=== PATIENT | female | born 1995 | race Caucasian/White ===

== ENCOUNTER 2017-03-27 02:44 | Emergency (ER) | payer OTHER ==
[~2017-03-27] VITALS: Ht 154.9 cm; Wt 59.0 kg
--- NOTE | ~2017-03-27 | EKG ---
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
[2017-03-27 03:19] LABS: ABSOLUTE NEUTROPHILS 4.2 thou/uL (1.4-8.2); BASOPHILS 0.6 % (0.0-2.0); EOSINOPHILS 1.3 % (0.0-3.0); HEMATOCRIT 32.7 % (37.0-47.0); HEMOGLOBIN 10.7 gm/dL (12.0-15.0); LYMPHOCYTES 35.9 % (24.0-44.0); MCH 25.6 pg (26.0-34.0); MCHC 32.6 g/dL (28.0-37.0); MCV 78.6 fL (80.0-100.0); MONOCYTES 9.5 % (1.0-8.0); PLATELET COUNT 298 thou/uL (150-400); POLYS 52.7 % (36.0-66.0); RBC 4.16 mil/uL (4.20-5.00); RDW 15.4 % (10.5-14.5)
[2017-03-27 03:35] LABS: APTT 29.4 Seconds (24.5-32.8); PROTIME 10.7 Seconds (9.3-11.4)
[2017-03-27 03:39] LABS: ANION GAP 11 mmol/L (7-16); BUN 12 mg/dL (7-18); CALCIUM 8.8 mg/dL (8.5-10.1); CHLORIDE 104 mmol/L (98-107); CO2 27 mmol/L (21-32); CREATININE 0.8 mg/dL (0.6-1.0); GLUCOSE 134 mg/dL (74-106); SODIUM 142 mmol/L (136-145)
[2017-03-27 03:47] LABS: POTASSIUM 2.7 mmol/L (3.5-5.1)
[2017-03-27 03:48] LABS: SGOT 16 U/L (15-37); TOTAL BILIRUBIN 0.2 mg/dL (<0.1-1.0)
[2017-03-27 03:49] LABS: MAGNESIUM 1.8 mg/dL (1.8-2.4); SGPT 25 U/L (30-65); TOTAL PROTEIN 7.6 g/dL (6.4-8.2); TROPONIN-I < 0.04 ng/mL (<0.06)
[2017-03-27] MEDS ORDERED: POTASSIUM20 PO (03:55)
== END 2017-03-27 04:39 | disposition home or self-care (01) ==
LOC: ER 02:44
PROVIDERS: Emergency Medicine
DX: T50.995A Adverse effect of other drugs, medicaments and biological substances, initial encounter (principal); R00.0 Tachycardia, unspecified; E87.6 Hypokalemia; J06.9 Acute upper respiratory infection, unspecified; Y92.89 Other specified places as the place of occurrence of the external cause